=== PATIENT | female | born 2000 | race Caucasian/White ===

== ENCOUNTER → 2022-02-09 14:20 | Outpatient (BNVA) | payer OTHER, SELFPAY | PROVIDERS: PCP Nurse Practitioner Family; Visit Provider Internal Medicine | DX: H46.8 Other optic neuritis (principal); R76.8 Other specified abnormal immunological findings in serum; G58.9 Mononeuropathy, unspecified | CPT/HCPCS: 36415; 82550; 83516; 85651; 86140; 86160; 86162; 86200; 86235; 86255; 86376; 86431; 86480; 86704; 86803; 87340 ==